=== PATIENT | female | born 1980 | race Caucasian/White ===

== ENCOUNTER 2018-04-21 14:17 | Inpatient (IN) | payer OTHER ==
[2018-04-21] VITALS (7 sets, daily range): BP systolic 147–175; BP diastolic 93–111
[~2018-04-21] VITALS: Ht 157.5 cm; Wt 55.3 kg
[2018-04-21] MEDS ORDERED: NOHOMEMEDICATIONS (14:33)
[2018-04-21 14:59] LABS: ABSOLUTE LYMPHOCYTES 0.9 thou/uL (0.8-5.3); ABSOLUTE MONOCYTES 0.3 thou/uL (0.0-1.2); ABSOLUTE NEUTROPHILS 3.8 thou/uL (1.6-8.1); BASOPHILS 0.4 %; EOSINOPHILS 0.2 %; HEMATOCRIT 42.9 % (37.0-47.0); HEMOGLOBIN 14.5 gm/dL (12.0-15.0); LYMPHOCYTES 18.6 %; MCH 32.9 pg (26.0-34.0); MCHC 33.8 g/dL (28.0-37.0); MCV 97.2 fL (80.0-100.0); MONOCYTES 6.3 %; MPV 8.5 fl. (7.2-11.1); NUCLEATED RBCS 0 /100WBC; PLATELET COUNT* 116 thou/uL (150-400); POLYS 74.5 %; RBC 4.42 mil/uL (4.20-5.00); RDW-CV 14.4 % (10.5-14.5); WBC 5.1 thou/uL (4.0-11.0)
[2018-04-21 15:04] LABS: APTT 27.3 Seconds (25.0-31.3); PROTIME 10.3 Seconds (9.20-11.50)
[2018-04-21 15:10] LABS: CALCIUM 9.1 mg/dL (8.5-10.1); CREATININE 1.1 mg/dL (0.6-1.3); POTASSIUM 3.3 mmol/L (3.5-5.1)
[2018-04-21 15:15] LABS: ALBUMIN 4.1 g/dL (3.4-5.0); TOTAL BILIRUBIN 1.1 mg/dL (<0.1-1.0); TOTAL PROTEIN 8.1 g/dL (6.4-8.2)
[2018-04-21 16:45] LABS: URINE BILIRUBIN NEGATIVE (Negative); URINE BLOOD TRACE (Negative); URINE CLARITY CLEAR; URINE COLOR YELLOW; URINE GLUCOSE-RANDOM 1+ (Negative); URINE KETONES TRACE (Negative); URINE LEUKOCYTES-REFLEX TRACE (Negative); URINE NITRITE-REFLEX NEGATIVE (Negative); URINE PROTEIN NEGATIVE (Negative); URINE UROBILINOGEN 0.2 E.U./dl (0.2-1.0)
[2018-04-21 16:53] LABS: CASTS None Seen /LPF (None Seen); CRYSTALS None Seen /LPF (None Seen); MUCUS None Seen strn/LPF (None Seen); SQUAMOUS 4-10 Moderate /LPF (0-3)
[2018-04-21 16:54] LABS: BACTERIA-REFLEX 1-9 Few /HPF (None Seen); URINE RBC 0-2 Rare /HPF (0-2); URINE WBC-REFLEX 0-5 Rare /HPF (0-5)
--- NOTE | 2018-04-21 19:13 | NUR ---
LAB CALLED AND ASKED IF ORDER FOR STAT MAG LEVEL WAS ABLE TO BE ADDED ON TO THE PREVIOUS BLOOD DRAW OF IF A NEW SPECIMEN WAS REQUIRED. THIS NURSE SPOKE WITH DR. LOPEZ. INFORMED LAB THAT MAG LEVEL COULD BE ADDED TO PRIOR BLOOD DRAW PER DR. LOPEZ'S INSTRUCTIONS.
--- NOTE | 2018-04-21 22:56 | NUR ---
ADMITTED TO ICU BED 1, SEE ASSESSMENT. ALCOHOL WITHDRAWL PROTOCOL INITIATED. PT REPORTS HISTORY OF TUBERCULOSIS AT AGE 14 WHICH WAS TREATED. PER DR REMY, NO NEED FOR ISOLATION CHEST CT NOT SUGGESTIVE OF TB AND PT NOT EXHIBITING S/S OF TB. CALL LIGHT WITHIN REACH.
[2018-04-21 23:23] LABS: AMP/METHAMP Negative (Negative); BARBITURATES Negative (Negative); BENZODIAZEPINES Negative (Negative); COCAINE Negative (Negative); METHADONE Negative (Negative); OPIATES Negative (Negative); PCP Negative (Negative); THC POSITIVE (Negative)
[2018-04-22] VITALS (16 sets, daily range): BP systolic 136–159; BP diastolic 95–112
[2018-04-22 04:17] LABS: ABSOLUTE LYMPHOCYTES 1.4 thou/uL (0.8-5.3); ABSOLUTE MONOCYTES 0.4 thou/uL (0.0-1.2); ABSOLUTE NEUTROPHILS 3.4 thou/uL (1.6-8.1); BASOPHILS 0.5 %; EOSINOPHILS 0.9 %; HEMATOCRIT 39.9 % (37.0-47.0); HEMOGLOBIN 13.5 gm/dL (12.0-15.0); LYMPHOCYTES 26.8 %; MCH 32.7 pg (26.0-34.0); MCV 96.4 fL (80.0-100.0); MONOCYTES 7.9 %; NUCLEATED RBCS 0 /100WBC; PLATELET COUNT* 86 thou/uL (150-400); POLYS 63.9 %; RBC 4.14 mil/uL (4.20-5.00); RDW-CV 14.2 % (10.5-14.5); WBC 5.3 thou/uL (4.0-11.0)
[2018-04-22 04:33] LABS: AMMONIA < 10 umol/L (11-32); ANION GAP 11 mmol/L (7-16); BUN 2 mg/dL (7-18); CALCIUM 8.7 mg/dL (8.5-10.1); CHLORIDE 99 mmol/L (98-107); CO2 25 mmol/L (21-32); CREATININE 0.5 mg/dL (0.6-1.3); GLUCOSE 107 mg/dL (70-99); POTASSIUM 3.6 mmol/L (3.5-5.1); SODIUM 135 mmol/L (136-145)
--- NOTE | 2018-04-22 07:28 | NUR ---
PROGRESSING TOWARD GOALS. IVF INFUSING ORDERED. TOLERATING PO INTAKE WITH NO C/O NAUSEA. PRN OXY IR GIVEN X1 FOR FACIAL PAIN WITH ADEQUATE RELIEF PER PT. ASSISTED TO BSC X MANY, UNSTEADY ON FEET. CALL LIGHT WITHIN REACH.
--- NOTE | 2018-04-22 11:44 | NUR ---
PATIENT CALLED OUT TO THIS NURSE AND WANTED TO GO HOME. EXPLAINED AND EDUCATED TO HER THAT SHE ISN'T QUITE READY TO GO HOME DUE TO HER DETOXING STILL. SHE SAID SHE HAS TO RIGGER UP HER DAUGHTER FROM SCHOOL THIS AFTERNOON AND HAS TO LEAVE TO DO THAT. I EDUCATED HER THAT SHE IS NOT ABLE TO DRIVE AT THIS TIME AND THAT SHE CAN LEAVE AGAINSTED MEDICAL ADVICE BUT SOMEONE HAD TO COME GET HER DUE TO HER RECEIVING ATIVAN MEDICATION. ENCOURAGED TO CALL A FRIEND OR FAMILY MEMBER TO GET HER DAUGHTER SO THAT SHE CAN STAY AND COMPLETE HER TREATMENT. DR REMY UPDATED ON PATIENT REQUEST. PATIENT MAKING PHONE CALLS AT THIS TIME.
--- NOTE | 2018-04-22 13:24 | NUR ---
PATIENT GOT AHOLD OF FRIEND AND SAID SHE IS COMING TO PICK HER UP. EDUCATED HER AGAIN ON THE RISKS OF LEAVING AND STILL WANTS TO LEAVE. FRIEND ON HER WAY. AMA PAPERWORK PREPARED. WILL D/C IVS
--- NOTE | 2018-04-22 14:22 | NUR ---
PATIENT HAS DECIDED TO STAY AT THIS TIME. FRIEND HAS OFFERED TO HELP HER WITH HER DAUGHTER IN ORDER FOR HER TO GET THE HELP SHE NEEDS. MRI SCHEDULED FOR [address] LARA.
--- NOTE | 2018-04-22 15:42 | NUR ---
PATIENT GOING TO MRI AT THIS TIME
--- NOTE | 2018-04-22 17:56 | NUR ---
PATIENT PROGRESSING WELL TOWARDS GOALS. CIWA HAVE REMAINED LOW THROUGHOUT THIS SHIFT. PATIENT HAS AGREED TO STAY AND GET TREATMENT. TELE STATUS AT THIS TIME. STEADY ON HER FEET. IV FLUIDS INFUSING. DOES COMPLAIN OF HEADACHE, TYLENOL GIVEN. MRI DONE TODAY, RESULTS ARE NEGATIVE. EEG DONE ALSO. NO SHORTNESS OF BREATH AT THIS TIME, BED IN LOWEST POSITION, CALL LIGHT IN REACH.
[2018-04-23 00:40] VITALS: BP 155/101
[2018-04-23 04:39] VITALS: BP 164/108
[2018-04-23 05:06] LABS: ABSOLUTE EOSINOPHILS 0.1 thou/uL (0.0-0.7); ABSOLUTE LYMPHOCYTES 1.6 thou/uL (0.8-5.3); ABSOLUTE MONOCYTES 0.3 thou/uL (0.0-1.2); ABSOLUTE NEUTROPHILS 2.2 thou/uL (1.6-8.1); BASOPHILS 0.5 %; EOSINOPHILS 2.7 %; HEMATOCRIT 41.8 % (37.0-47.0); HEMOGLOBIN 14.2 gm/dL (12.0-15.0); LYMPHOCYTES 37.2 %; MCH 32.8 pg (26.0-34.0); MCHC 33.9 g/dL (28.0-37.0); MCV 96.7 fL (80.0-100.0); MPV 9.3 fl. (7.2-11.1); NUCLEATED RBCS 0 /100WBC; PLATELET COUNT* 78 thou/uL (150-400); POLYS 51.6 %; RBC 4.32 mil/uL (4.20-5.00); RDW-CV 14.1 % (10.5-14.5); WBC 4.2 thou/uL (4.0-11.0)
[2018-04-23 05:32] LABS: ALBUMIN 3.5 g/dL (3.4-5.0); CALCIUM 9.2 mg/dL (8.5-10.1); CREATININE 0.6 mg/dL (0.6-1.3); MAGNESIUM 1.7 mg/dL (1.8-2.4); PHOSPHORUS* 2.9 mg/dL (2.5-4.9); POTASSIUM 3.2 mmol/L (3.5-5.1); TOTAL PROTEIN 7.4 g/dL (6.4-8.2)
--- NOTE | 2018-04-23 06:00 | NUR ---
PROGRESSING TOWARD GOALS. CIWA REMAINS 1 THROUGH THE NIGHT. PT TOLERATING PO INTAKE, NO C/O NAUSEA. DENIED PAIN AND SOA THROUGH THE NIGHT. IVF INFUSING ORDERED.
[2018-04-23 08:30] VITALS: BP 167/113
--- NOTE | 2018-04-23 10:30 | NUR ---
PT.ALERT AND ORIENTED. PLEASANT AND GAVE INFORMATION READILY. GAVE HER PACKET FOR ALCOHOL DEPENDENCE. SHE SAID SHE HAS BEEN TO [facility] AND IN THE PAST. SHE KNOWS WHAT SHE NEEDS TO DO, IT'S JUST DOING IT EVERYDAY. SHE SAID SHE WAS GOING THROUGH A DIVORCE AND LOST HER INSURANCE. SHE WAS STYING AT A FRIEND'S SHIV HERE IN [place]. PT WAS TRYING TO WEAN HERSELF SLOWLY OFF THE ALCOHOL BUT FRIEND JUST CUT HER OFF COLD TURKEY. SHE HAS 2 CHILDREN. ONE A 6 YO GIRL LIVES WITH HER. FRIEND HAS OFFERED TO HELP HER WITH HER DAUGHTER SO SHE CAN GET THE HELP SHE NEEDS. PT.SAID SHE APPLIED FOR [facility] ([place] MEDICAID) 3 WEEKS AGO. IT WILL TAKE UP TO 45 DAYS. SHE DOES SEE A PCP-DR.JOHN STAHL. PT.TO BE DISCHARGED TODAY. SHE SAID HER FRIEND WILL PICK HER UP.
[2018-04-23 11:01] VITALS: BP 164/108
[2018-04-23] MEDS ORDERED: VITAMIN B-1100 M1 PO (11:12)
[2018-04-23] MEDS ORDERED: UNICOMPLEX M TA1 TA1 PO (11:12)
[2018-04-23] MEDS ORDERED: FOLIC ACID1 MG PO (11:12)
--- NOTE | 2018-04-23 13:01 | NUR ---
PATIENT DISCHARGED WITH FRIEND. ALL BELONGINGS TAKEN WITH PATIENT. ALL DISCHARGE INFORMATION GIVEN, PRESCRIPTS GIVEN AND INFORMATION GIVEN WELL. ALL QUESTIONS ANSWERED.
--- NOTE | 2018-04-24 14:06 | NUR ---
PT ORDERS RECEIVED ON 04/23/18 AT 1231 PM. PT DISCHARGED PRIOR TO COMPLETION OF PT EVALUATION.
--- NOTE | 2018-04-25 19:14 | EEG ---
[address] [address] EEG STUDY REPORT Name: VERNELL WALLACE Room: [address] IN [facility]#: [id number] Admission: 04/21/18 Attend Phys: De He MD Discharge: 04/23/18 Date of : 84 Report #: [id number] THIS REPORT FOR: //name// CC: De He [facility] physician/PCP DATE OF SERVICE: 04/22/2018 This patient is being evaluated for seizure. The patient's EEG was done by placing the electrode by standard 10-20 system of electrode placement. Both referential and sequential montages were used for recording. Background activity is intermixed with a lot of artifact because the patient did not cooperate. It appeared to be about 11-12 Hz and 30 microvolts. It is a symmetrical activity. Photic stimulation is unremarkable. The patient went to sleep that is associated with bilateral slowing and vertex sharp waves. Throughout the record, no active epileptiform activity was noticed. IMPRESSION: This patient's EEG is suboptimal because the patient did not cooperate. It does not appear to be showing any active epileptiform activity. Thank you very much for this referral. <ELECTRONICALLY SIGNED> By: Newton Salmeron MD 04/25/18 1914 [id number] [id number] Salmeron MD /yobany
--- NOTE | 2018-04-25 19:14 | CON ---
[address] [address] CONSULTATION Name: VERNELL WALLACE Jaylen Room: [address] IN .R.#: [id number] Admission: 04/21/18 Attend Phys: De He MD Discharge: 04/23/18 Date of : 84 Report #: [id number] THIS REPORT FOR: //name// CC: De He [facility] physician/PCP DATE OF SERVICE: 04/22/2018 HISTORY OF PRESENT ILLNESS: This is a 37-year-old female patient who was evaluated by me for seizure. She does not remember anything about the seizure. She said it happened yesterday. She drinks alcohol in heavy amounts all the time. She has stopped drinking last Saturday. She said she just wanted to stop drinking and she did that. This was a grand mal seizure with tongue biting and facial trauma. She never had any seizure before. They did a head CT and CT scan of the C-spine in the Emergency Room and that did not show any abnormality. She has not had any further seizure. REVIEW OF SYSTEMS: Indicate history of heavy alcohol abuse. She has multiple problems including liver abnormality. Her enzymes are pretty high. Fourteen-point review of systems and this was her relevant 14-point review of systems. PAST MEDICAL HISTORY: Negative for seizure. FAMILY HISTORY: One of the uncle have the seizure. SOCIAL HISTORY: She drinks alcohol in heavy amounts. PHYSICAL EXAMINATION: Indicates that she is alert, she is responsive, she can follow simple commands. She is oriented. Her speech looks unremarkable. Cranial nerve examination 2-12 looks mostly unremarkable. The best I can tell, she has a contusion on the right orbit and full examination of the cranial nerve is difficult. Strength, sensation, reflexes and tone are symmetrical. I could not look at the fundus. There is no meningeal sign. Cardiac examinations appear noncontributory, temperature is 98.5, pulse is 98 and blood pressure is 137/101. It has fluctuated to some extent. LABORATORY DATA: White count is normal. Liver function is markedly abnormal. IMPRESSION: This seizure is most likely alcohol withdrawal seizure. Her liver abnormality may also have contributed to that. RECOMMENDATIONS: 1. Mainly recommend management of alcohol withdrawal with vitamins. 2. I will get an MRI and EEG done to complete the workup. 3. She needs to take seizure precaution for at least 6 [place] [address] CONSULTATION Name: VERNELL WALLACE Jaylen Room: [address]#: [id number] Admission: 04/21/18 Attend Phys: De He MD Discharge: 04/23/18 Date of : 84 Report #: [id number] with her the driving laws in [place] and [place] and she cannot drive for 6 months because of the seizure. 4. We discussed about anticonvulsants. She wants to hold that and that is reasonable because the seizures look like alcohol withdrawal seizure. Thank you very much for this referral. <ELECTRONICALLY SIGNED> By: Newton Salmeron MD 04/25/18 1914 [id number] [id number] Salmeron MD /nt
== END 2018-04-23 12:56 | disposition home or self-care (01) | DRG 101 ==
LOC: M.ERS 14:17 → M.TBA-ER 17:14 → M.ICU 17:14
PROVIDERS: Physician Assistant; ADMIT Internal Medicine
PROC: 0HQ1XZZ Repair Face Skin, External Approach (ICD-10-PCS; principal; 2018-04-21)
DX: G40.89 Other seizures (principal); E87.1 Hypo-osmolality and hyponatremia; F10.230 Alcohol dependence with withdrawal, uncomplicated; S01.81XA Laceration without foreign body of other part of head, initial encounter; K70.10 Alcoholic hepatitis without ascites; E86.0 Dehydration; E87.6 Hypokalemia; I10 Essential (primary) hypertension; R55 Syncope and collapse; W18.30XA Fall on same level, unspecified, initial encounter; Y93.89 Activity, other specified; Y92.89 Other specified places as the place of occurrence of the external cause; Y99.8 Other external cause status; Z23 Encounter for immunization

== ENCOUNTER 2018-05-05 09:50 | Emergency (ER) | payer OTHER ==
[~2018-05-05] VITALS: Ht 157.5 cm; Wt 57.6 kg
[~2018-05-05 09:50] MED LIST: FOLIC ACID1 MG PO; NOHOMEMEDICATIONS; UNICOMPLEX M TA1 TA1 PO; VITAMIN B-1100 M1 PO
[2018-05-05] MEDS ORDERED: HYDROXYZINE HCL25 M1 PO (09:59)
[2018-05-05] MEDS ORDERED: HYDROCHLOROTHIA25 M2 PO (09:59)
[2018-05-05 10:20] VITALS: BP 154/109
== END 2018-05-05 10:21 | disposition home or self-care (01) ==
LOC: M.ERS 09:50
DX: S01.81XD Laceration without foreign body of other part of head, subsequent encounter (principal); I10 Essential (primary) hypertension; Z88.8 Allergy status to other drugs, medicaments and biological substances; X58.XXXD Exposure to other specified factors, subsequent encounter